=== PATIENT | female | born 1945 | race American Indian/Alaskan Native ===

== ENCOUNTER 2018-01-24 09:17 | Outpatient (CLI) | payer OTHER ==
--- NOTE | 2018-01-24 13:37 | Mammography Report ---
BILATERAL DIGITAL SCREENING MAMMOGRAM with CAD: 01/24/18 09:17:00 CLINICAL: Routine screening. COMPARISON:None available. FINDINGS: There are scattered areas of fibroglandular density. No mass, architectural distortion or suspicious calcifications. IMPRESSION: No mammographic evidence of malignancy. BI-RADS CATEGORY: 2 -- Benign RECOMMENDATION: Routine mammographic screening in one year. COMMENT: Patient follow-up letters are generated by our [employer] application.
== END 2018-01-24 09:18 | disposition home or self-care (01) ==
LOC: MAMMO 09:17
PROVIDERS: ATTEND Family Medicine
DX: Z12.31 Encounter for screening mammogram for malignant neoplasm of breast (principal)
CPT/HCPCS: 77067

== ENCOUNTER 2018-10-16 02:16 | Emergency (ER) | payer OTHER ==
--- NOTE | 2018-10-16 03:06 | Emergency Department Report ---
HPI - General Chief Complaint: Hypoglycemia Time Seen by Provider: 10/16/18 02:53 - HPI HPI: Room 6 The patient is a 73-year-old female presenting with a chief complaint hypoglycemia. The patient states this evening she noticed her blood sugar continued to decrease. She states she'll feel shaky and near syncopal starting at approximately 21:00. The patient states she last took her insulin evening at 19:00. The patient states at 18:00 she had eaten some red beans and rice for her symptoms came on she felt so she had not eaten enough so she ate some more. Patient admits to eating breakfast but is not certain if she's had lunch. The patient's states that the patient does not eat much for the past year and forced herself to eat when she takes her diabetes medication. Patient currently states she feels normal. Location: [See above] Duration: [See above] Quality: [See above] Severity: [See above] Modifying factors: [see above] Context: [see above] Mode of transportation: [not driving] ED Past Medical Hx - Past Medical History Previous Medical History?: Yes Hx Hypertension: Yes Hx Diabetes: Yes - Surgical History Past Surgical History?: Yes Additional Surgical History: ankle - Family History Family history: no significant - Social History Smoking Status: Never Smoker Substance Use Type: Alcohol (occasional) ED Review of Systems ROS: Stated complaint: LOW BLOOD SUGAR Other details as noted in HPI Constitutional: no symptoms reported Eyes: denies: eye pain ENT: denies: throat pain Respiratory: no symptoms reported Cardiovascular: denies: chest pain Endocrine: no symptoms reported Gastrointestinal: denies: abdominal pain Genitourinary: denies: dysuria Musculoskeletal: denies: back pain Neurological: other (near syncopal) Physical Exam - Physical Exam Physical Exam: GENERAL: The patient is well-developed well-nourished female sitting on stretc her not appearing to be in acute distress. [] HEENT: Normocephalic. Atraumatic. Extraocular motions are intact. Patient has moist mucous membranes. NECK: Supple. Trachea midline CHEST/LUNGS: Clear to auscultation. There is no respiratory distress noted. HEART/CARDIOVASCULAR: Regular. There is no tachycardia. There is no gallop rub or murmur. ABDOMEN: Abdomen is soft, nontender. Patient has normal bowel sounds. There is no abdominal distention. SKIN: There is no rash. There is no edema. There is no diaphoresis. NEURO: The patient is awake, alert, and oriented. The patient is cooperative. The patient has no focal neurologic deficits. The patient has normal speech. Cranial nerves II through XII grossly intact, no drift MUSCULOSKELETAL: There is no evidence of acute injury. ED Medical Decision Making - Lab Data Result diagrams: 10/16/18 03:14 10/16/18 03:14 Laboratory Tests 10/16/18 10/16/18 10/16/18 02:28 03:14 03:14 WBC 6.2 RBC 4.78 Hgb 12.1 Hct 37.9 MCV 79 MCH 25 L MCHC 32 RDW 16.2 H Plt Count 255 Lymph % (Auto) 25.3 [place] % (Auto) 7.2 Eos % (Auto) 2.6 Baso % (Auto) 0.8 Lymph # 1.6 [place] # 0.4 Eos # 0.2 Baso # 0.1 Seg Neutrophils % 64.1 Seg Neutrophils # 4.0 Sodium 139 Potassium 3.7 Chloride 100.2 Carbon Dioxide 24 Anion Gap 19 BUN 14 Creatinine 1.0 Estimated GFR > 60 BUN/Creatinine Ratio 14 Glucose 115 H POC Glucose 52 L Calcium 8.7 Total Creatine Kinase 91 CK-MB (CK-2) 1.8 CK-MB (CK-2) Rel Index 1.9 Troponin T < 0.010 10/16/18 10/16/18 10/16/18 03:17 03:57 04:44 WBC RBC Hgb Hct MCV MCH MCHC RDW Plt Count Lymph % (Auto) [place] % (Auto) Eos % (Auto) Baso % (Auto) Lymph # [place] # Eos # Baso # Seg Neutrophils % Seg Neutrophils # Sodium Potassium Chloride Carbon Dioxide Anion Gap BUN Creatinine Estimated GFR BUN/Creatinine Ratio Glucose POC Glucose 113 H 127 H 144 H Calcium Total Creatine Kinase CK-MB (CK-2) CK-MB (CK-2) Rel Index Troponin T - Differential Diagnosis hypoglycemia Critical care attestation.: If time is entered above; I have spent that time in minutes in the direct care of this critically ill patient, excluding procedure time. ED Disposition Clinical Impression: Hypoglycemia Disposition: DC-01 TO HOME OR SELFCARE Is pt being admited?: No Does the pt Need Aspirin: No Condition: Stable Instructions: Diabetic Hypoglycemia (ED) Additional Instructions: Return to the emergency department immediately should you develop worsening symptoms, fever, inability to tolerate food or liquid or any other concerns. Referrals: JESENIA LOPEZ MD [Staff Physician] - 3-5 Days Time of Disposition: 05:01
[2018-10-16 03:22] LABS: Basophils # (Auto) 0.1 K/mm3 (0.0-0.1); Basophils % (Auto) 0.8 % (0.0-1.8); Eosinophils # (Auto) 0.2 K/mm3 (0.0-0.4); Eosinophils % (Auto) 2.6 % (0.0-4.3); Hematocrit 37.9 % (30.3-42.9); Hemoglobin 12.1 gm/dl (10.1-14.3); Lymphocytes # (Auto) 1.6 K/mm3 (1.2-5.4); Lymphocytes % (Auto) 25.3 % (13.4-35.0); Mean Corpuscular HGB Conc 32 % (30-34); Mean Corpuscular Volume 79 fl (79-97); Monocytes # (Auto) 0.4 K/mm3 (0.0-0.8); Monocytes % (Auto) 7.2 % (0.0-7.3); Platelet Count 255 K/mm3 (140-440); Red Blood Count 4.78 M/mm3 (3.65-5.03); Red Cell Distribution Width 16.2 % (13.2-15.2)
[2018-10-16 04:59] LABS: Creatine Kinase MB 1.8 ng/mL (0.0-4.0)
[2018-10-16 05:00] LABS: BUN/Creatinine Ratio 14; Blood Urea Nitrogen 14 mg/dL (7-17); Calcium 8.7 mg/dL (8.4-10.2); Hemolysis Index 39
[2018-10-16 05:08] VITALS: BP 121/60
== END 2018-10-16 05:12 | disposition home or self-care (01) ==
LOC: ED 02:16
DX: E11.649 Type 2 diabetes mellitus with hypoglycemia without coma (principal); I10 Essential (primary) hypertension; Z79.4 Long term (current) use of insulin
CPT/HCPCS: 36415; 80048; 82550; 82553; 82962; 84484; 85025; 99283

== ENCOUNTER 2018-11-20 06:08 | Emergency (ER) | payer BC, OTHER ==
[2018-11-20 06:18] VITALS: BP 116/51
[2018-11-20] MEDS ORDERED: NACL 0.9% 1000 ML 1,000 ML IV ONE (08:11)
--- NOTE | 2018-11-20 08:20 | Emergency Department Report ---
ED General Adult HPI - General Chief complaint: Wound/Laceration Stated complaint: FALL(LACERATION TO FOREHEAD) Time Seen by Provider: 11/20/18 08:04 Source: patient Mode of arrival: Ambulatory Limitations: No Limitations - History of Present Illness Initial comments: Patient is a 73-year-old [place] female who has past history of diabetes and hypertension who is coming in status post near syncopal episode. Patient states 2 days ago she took a laxative tea and is been having large amount of watery stools. Patient states that she started to become dizzy. Patient was rushing to the restroom and she slipped and fell she says she was slightly dizzy at that time although she did not lose consciousness. Patient states she did fall and hit her head on the ground. Patient states she tried to get up and slipped and fell again and struck her head a second time. Patient suffered lacerations to the anterior forehead. Again patient states she isn't enough lose consciousness. She denies any shortness of breath or chest pain. Patient denies any other injury except for some neck stiffness and right shoulder discomfort. - Related Data Allergies Allergy/AdvReac Type Severity Reaction Status Date / Time No Known Allergies Allergy Verified 10/16/18 02:24 ED Review of Systems ROS: Stated complaint: FALL(LACERATION TO FOREHEAD) Other details as noted in HPI Comment: All other systems reviewed and negative ED Past Medical Hx - Past Medical History Previous Medical History?: Yes Hx Hypertension: Yes Hx Diabetes: Yes - Surgical History Past Surgical History?: Yes Additional Surgical History: ankle - Social History Smoking Status: Never Smoker Substance Use Type: None ED Physical Exam - General Limitations: No Limitations General appearance: alert, in no apparent distress - Head Head exam: Present: normocephalic, other (patient with a 2 cm laceration in the vertical orientation on the forehead). Absent: atraumatic - Eye Eye exam: Present: normal appearance, PERRL, EOMI - ENT ENT exam: Present: mucous membranes moist - Neck Neck exam: Present: normal inspection, tenderness (generalized), full ROM - Respiratory Respiratory exam: Present: normal lung sounds bilaterally. Absent: respiratory distress, wheezes, rales, rhonchi - Cardiovascular Cardiovascular Exam: Present: regular rate, normal rhythm. Absent: systolic murmur, diastolic murmur, rubs, gallop - GI/Abdominal GI/Abdominal exam: Present: soft, normal bowel sounds. Absent: distended, tenderness, guarding, rebound - Extremities Exam Extremities exam: Present: normal inspection - Back Exam Back exam: Present: normal inspection - Neurological Exam Neurological exam: Present: alert, oriented X3, CN II-XII intact. Absent: motor sensory deficit - Psychiatric Psychiatric exam: Present: normal affect, normal mood - Skin Skin exam: Present: warm, dry, intact, normal color. Absent: rash ED Course Vital Signs 11/20/18 06:16 Temperature 97.7 F Pulse Rate 57 L Respiratory 18 Rate Blood Pressure 116/51 O2 Sat by Pulse 98 Oximetry - Reevaluation(s) Reevaluation #1: 11/20/18 11:21 Patient was negative for orthostatics. Patient did have IV established by me but she stated it hurt and she wanted to have the IV taken out and she refused any additional IV sticks. Since she is not orthostatic and is tolerating by mouth she'll be allowed to go home and do oral hydration. Patient discharged. - Laceration /Wound Repair Anterior Head Wound Location: head, face Wound Length (cm): 2 Wound's Depth, Shape: irregular Wound Explored: no foreign body removed Irrigated w/ Saline (ccs): 100 Betadine Prep?: Yes Anesthesia: 1% Lidocaine Wound Repaired With: sutures Suture Size/Type: 6:0, nylon Number of Sutures: 6 Sterile Dressing Applied?: Yes ED Medical Decision Making - Lab Data Result diagrams: 11/20/18 08:16 11/20/18 08:16 - Radiology Data [facility] [address] [place] [address] Cat Scan Report Signed Patient: TAMERA HAIR MR#: [id number] : 1945 Acct:[id number] Age/Sex: 73 / F ADM Date: 11/20/18 Loc: ED Attending Dr: Ordering Physician: MITESH FENTON MD Date of Service: 11/20/18 Procedure(s): CT cervical spine wo con Accession Number(s): [id number] cc: MITESH FENTON MD CT CERVICAL SPINE WITHOUT CONTRAST INDICATION: Pain, injury. COMPARISON: None similar. FINDINGS: Noncontrast axial, sagittal and coronal CT reconstructions of the cervical spine demonstrate normal visualized intracranial appearance. Few missing teeth noted. Assessment of the spinal canal from C5 inferiorly also compromised due to artifact from shoulder soft tissues. Clear included sinuses and mastoid air cells. Symmetric occipital condyles. Normal anterior and posterior arches of C1. Intact craniocervical articulation with normal predental space, prevertebral soft tissues, vertebral body stature and posterior elements. Mild multilevel degenerative spurring from C4 through imaged upper thoracic levels, greatest at C5-C6. Straightening noted, possibly positional versus spasm. Few aortic and carotid atherosclerotic calcifications. Patent airway. Clear imaged lung apices. On the obtained axial images: C2-C3, C3-C4 and C4-C5 appear within normal limits. C5-C6 demonstrates mild disc narrowing and slight uncovertebral spurring. C6-C7 is unremarkable. C7-T1 demonstrates mild left facet arthropathy. CONCLUSION: Few cervical spine degenerative changes and other incidental findings, as above. Please correlate. Thank you for the opportunity to participate in this patient's care. Transcribed By: RS Dictated By: KRISTIE CESPEDES MD Electronically Authenticated By: KRISTIE CESPEDES MD Signed Date/Time: 11/20/18 1009 [facility] [address] [place] [id number] Cat Scan Report Signed Patient: TAMERA HAIR MR#: [id number] : 1945 Acct:[id number] Age/Sex: 73 / F ADM Date: 11/20/18 Loc: ED Attending Dr: Ordering Physician: MITESH FENTON MD Date of Service: 11/20/18 Procedure(s): CT head/brain wo con Accession Number(s): [id number] cc: MITESH FENTON MD CT HEAD WITHOUT CONTRAST INDICATION: Pain after fall. COMPARISON: None similar. FINDINGS: Noncontrast head CT demonstrates normal ventricles and sulci. Slight periventricular hypodensities. No acute infarct, hemorrhage, mass effect or midline shift. No abnormal extra axial fluid collections. Minimal, benign bilateral basal ganglia calcifications. Normal posterior fossa with preserved basilar cisterns. Normal imaged eye globes. Approximately 3.4 x 1.2 cm frontal scalp hematoma/swelling noted near midline with suspected laceration and few nonspecific superficial radiodensities/possible foreign bodies measuring up to 0.3 cm as on axial image 45, series 2. Possibly empty sella. Normal calvarium. Clear paranasal sinuses and mastoid air cells. Approximately 3 mm rightward nasal septal spur incidentally noted. Numerous missing teeth. Cervical spondylosis. CONCLUSION: 1. Frontal scalp injury/hematoma with few tiny superficial radiodensities, not entirely excluded for small foreign bodies. 2. No acute intracranial CT abnormality with age-appropriate atrophy and few other incidental findings, as above. Thank you for the opportunity to participate in this patient's care. Transcribed By: RS Dictated By: KRISTIE CESPEDES MD Electronically Authenticated By: KRISTIE CESPEDES MD Signed Date/Time: 11/20/18921 DD/ 6 TD/TT: 11/20/18921 DD/ 100 TD/TT: 11/20/18 1009 Critical care attestation.: If time is entered above; I have spent that time in minutes in the direct care of this critically ill patient, excluding procedure time. ED Disposition Clinical Impression: Dehydration, Near syncope Closed head injury Qualifiers: Encounter type: initial encounter Qualified Code(s): S09.90XA - Unspecified injury of head, initial encounter Facial laceration Qualifiers: Encounter type: initial encounter Qualified Code(s): S01.81XA - Laceration without foreign body of other part of head, initial encounter Disposition: - TO HOME OR SELFCARE Is pt being admited?: No Does the pt Need Aspirin: No Condition: Stable Instructions: Dehydration (ED), Suture Care (ED), Laceration (ED) Additional Instructions: Sutures will need to be removed in one week Time of Disposition: 11:23
[2018-11-20 08:34] LABS: Hematocrit 38.6 % (30.3-42.9); Hemoglobin 12.5 gm/dl (10.1-14.3); Mean Corpuscular HGB Conc 33 % (30-34); Mean Corpuscular Volume 78 fl (79-97); Platelet Count 239 K/mm3 (140-440); Red Blood Count 4.94 M/mm3 (3.65-5.03); Red Cell Distribution Width 16.3 % (13.2-15.2)
[2018-11-20 08:54] LABS: Calcium 9.4 mg/dL (8.4-10.2)
--- NOTE | 2018-11-20 09:23 | Cat Scan Report ---
CT HEAD WITHOUT CONTRAST INDICATION: Pain after fall. COMPARISON: None similar. FINDINGS: Noncontrast head CT demonstrates normal ventricles and sulci. Slight periventricular hypodensities. No acute infarct, hemorrhage, mass effect or midline shift. No abnormal extra axial fluid collections. Minimal, benign bilateral basal ganglia calcifications. Normal posterior fossa with preserved basilar cisterns. Normal imaged eye globes. Approximately 3.4 x 1.2 cm frontal scalp hematoma/swelling noted near midline with suspected laceration and few nonspecific superficial radiodensities/possible foreign bodies measuring up to 0.3 cm as on axial image 45, series 2. Possibly empty sella. Normal calvarium. Clear paranasal sinuses and mastoid air cells. Approximately 3 mm rightward nasal septal spur incidentally noted. Numerous missing teeth. Cervical spondylosis. CONCLUSION: 1. Frontal scalp injury/hematoma with few tiny superficial radiodensities, not entirely excluded for small foreign bodies. 2. No acute intracranial CT abnormality with age-appropriate atrophy and few other incidental findings, as above. Thank you for the opportunity to participate in this patient's care.
--- NOTE | 2018-11-20 10:09 | Cat Scan Report ---
CT CERVICAL SPINE WITHOUT CONTRAST INDICATION: Pain, injury. COMPARISON: None similar. FINDINGS: Noncontrast axial, sagittal and coronal CT reconstructions of the cervical spine demonstrate normal visualized intracranial appearance. Few missing teeth noted. Assessment of the spinal canal from C5 inferiorly also compromised due to artifact from shoulder soft tissues. Clear included sinuses and mastoid air cells. Symmetric occipital condyles. Normal anterior and posterior arches of C1. Intact craniocervical articulation with normal predental space, prevertebral soft tissues, vertebral body stature and posterior elements. Mild multilevel degenerative spurring from C4 through imaged upper thoracic levels, greatest at C5-C6. Straightening noted, possibly positional versus spasm. Few aortic and carotid atherosclerotic calcifications. Patent airway. Clear imaged lung apices. On the obtained axial images: C2-C3, C3-C4 and C4-C5 appear within normal limits. C5-C6 demonstrates mild disc narrowing and slight uncovertebral spurring. C6-C7 is unremarkable. C7-T1 demonstrates mild left facet arthropathy. CONCLUSION: Few cervical spine degenerative changes and other incidental findings, as above. Please correlate. Thank you for the opportunity to participate in this patient's care.
[2018-11-20 14:39] LABS: Basophils % (Manual) 0 % (0.0-1.8); Hypochromasia Few; Platelet Estimate Consistent w Auto; Total Cells Counted 100
== END 2018-11-20 11:35 | disposition home or self-care (01) ==
LOC: ED 06:08
DX: S01.81XA Laceration without foreign body of other part of head, initial encounter (principal); E86.0 Dehydration; I10 Essential (primary) hypertension; E11.9 Type 2 diabetes mellitus without complications; W01.198A Fall on same level from slipping, tripping and stumbling with subsequent striking against other object, initial encounter; Y93.02 Activity, running; Y92.89 Other specified places as the place of occurrence of the external cause; Y99.8 Other external cause status
CPT/HCPCS: 12011; 36415; 70450; 72125; 80048; 85007; 85025; 99284; J7030

== ENCOUNTER 2018-11-26 10:15 | Emergency (ER) | payer OTHER, BC ==
--- NOTE | 2018-11-26 10:36 | Emergency Department Report ---
ED Recheck HPI - General Chief Complaint: Laceration/Recheck/Suture Stated Complaint: REMOVAL OF STITCHS Time Seen by Provider: 11/26/18 10:35 Source: patient Mode of arrival: Ambulatory Limitations: No Limitations - History of Present Illness Initial Comments: She was a 73-year-old female who comes in for suture removal. She had fallen and hit her friend will head. sutures in about 8 days. - Related Data Allergies Allergy/AdvReac Type Severity Reaction Status Date / Time No Known Allergies Allergy Verified 11/26/18 10:18 ED Review of Systems ROS: Stated complaint: REMOVAL OF STITCHS Other details as noted in HPI Comment: All other systems reviewed and negative ED Past Medical Hx - Past Medical History Hx Hypertension: Yes Hx Diabetes: Yes - Surgical History Additional Surgical History: ankle - Social History Smoking Status: Never Smoker Substance Use Type: None ED Physical Exam - General Limitations: No Limitations General appearance: alert - Head Head exam: Present: normocephalic - Eye Eye exam: Present: normal appearance, PERRL - Respiratory Respiratory exam: Present: normal lung sounds bilaterally - GI/Abdominal GI/Abdominal exam: Present: soft - Rectal Rectal exam: Present: deferred - Extremities Exam Extremities exam: Present: normal inspection, full ROM ED Course Vital Signs 11/26/18 10:42 Temperature 98.3 F Pulse Rate 48 L Respiratory 18 Rate Blood Pressure 137/70 [Right] O2 Sat by Pulse 98 Oximetry ED Recheck MDM - Core Measures Measure Exclusions: not indicated - Differential Diagnosis Suture/Staple Removal - Medical Decision Making sutures removed without difficulty Vital Signs (72 hours) 11/26/18 10:42 Temperature 98.3 F Pulse Rate 48 L Respiratory 18 Rate Blood Pressure 137/70 [Right] O2 Sat by Pulse 98 Oximetry dc home with dc plan of care Critical care attestation.: If time is entered above; I have spent that time in minutes in the direct care of this critically ill patient, excluding procedure time. ED Disposition Clinical Impression: Visit for suture removal Disposition: DC-01 TO HOME OR SELFCARE Is pt being admited?: No Does the pt Need Aspirin: No Condition: Stable Time of Disposition: 10:48
[2018-11-26 10:53] VITALS: BP 137/70
== END 2018-11-26 11:00 | disposition home or self-care (01) ==
LOC: ED 10:15
DX: S01.91XD Laceration without foreign body of unspecified part of head, subsequent encounter (principal); I10 Essential (primary) hypertension; E11.9 Type 2 diabetes mellitus without complications; W50.0XXD Accidental hit or strike by another person, subsequent encounter; Y93.89 Activity, other specified; Y92.89 Other specified places as the place of occurrence of the external cause; Y99.8 Other external cause status

== ENCOUNTER 2019-02-06 01:01 | Emergency (ER) | payer OTHER, BC ==
[2019-02-06] MEDS ORDERED: DECADRON IV ONE (01:23)
[2019-02-06] MEDS ORDERED: BENADRYL IV ONE (01:23)
[2019-02-06] MEDS ORDERED: REGLAN IV ONE (01:23)
[2019-02-06] MEDS ORDERED: NACL 0.9% 1000 ML 1,000 ML IV ONE (01:23)
[2019-02-06] MEDS ORDERED: TORADOL IV ONE (01:23)
--- NOTE | 2019-02-06 01:29 | Emergency Department Report ---
ED Headache HPI - General Chief Complaint: Headache Stated Complaint: HEADACHE/LOW SUGAR Time Seen by Provider: 02/06/19 01:22 - History of Present Illness Initial Comments: Patient is a 73-year-old -[place] female with a history of diabetes , managed with metformin and Victoza states bg was 105 tonight at home which set off headache to left temporal , this is usal response to hypoglycemia for this pt , pt denies cp no sob no diaphoresis no n/v no back pain, there has been no cough or fever no dysuria or frequency, Quality: moderate Head Injury Location: temporal Recent Head Trauma: occasional headaches Associated Symptoms: denies: confusion, fever/chills, loss of consciousness, nausea/vomiting, nasal congestion, nasal drainage, numbness in legs/feet, sinus infection, stiff neck, vision changes, weakness Allergies/Adverse Reactions: Allergies No Known Allergies Allergy (Verified 11/26/18 10:18) Home Medications: Ambulatory Orders Nitrofurantoin [place]/M-Cryst [Macrobid CAP] 100 mg PO BID 7 Days #14 capsule 02/06/19 ED Review of Systems ROS: Stated complaint: HEADACHE/LOW SUGAR Other details as noted in HPI Constitutional: denies: chills, fever Eyes: denies: eye pain, eye discharge, vision change ENT: denies: ear pain, throat pain Respiratory: no symptoms reported. denies: cough, shortness of breath, wheezing Cardiovascular: denies: chest pain, palpitations Endocrine: no symptoms reported Gastrointestinal: denies: abdominal pain, nausea, vomiting, diarrhea Genitourinary: denies: urgency, dysuria, discharge Musculoskeletal: denies: back pain, joint swelling, arthralgia Skin: denies: rash, lesions Neurological: headache. denies: weakness, numbness, paresthesias, confusion, abnormal gait, vertigo Psychiatric: denies: anxiety, depression Hematological/Lymphatic: denies: easy bleeding, easy bruising ED Past Medical Hx - Past Medical History Previous Medical History?: Yes Hx Hypertension: Yes Hx Diabetes: Yes - Surgical History Past Surgical History?: Yes Additional Surgical History: ankle - Social History Smoking Status: Never Smoker - Medications Home Medications: Home Medications Medication Instructions Recorded Confirmed Last Taken Type Nitrofurantoin [place]/M-Cryst 100 mg PO BID 7 Days #14 capsule 02/06/19 Unknown Rx [Macrobid CAP] ED Physical Exam - General Limitations: No Limitations General appearance: alert, in no apparent distress - Head Head exam: Present: atraumatic, normocephalic - Eye Eye exam: Present: normal appearance, PERRL, EOMI Pupils: Present: normal accommodation - ENT ENT exam: Present: normal orophraynx, mucous membranes moist, TM's normal bilaterally, normal external ear exam - Neck Neck exam: Present: normal inspection, full ROM. Absent: tenderness, meningismus, lymphadenopathy (I think he), thyromegaly - Respiratory Respiratory exam: Present: normal lung sounds bilaterally. Absent: respiratory distress, wheezes, stridor, chest wall tenderness - Cardiovascular Cardiovascular Exam: Present: regular rate, normal rhythm, normal heart sounds. Absent: systolic murmur, diastolic murmur, rubs, gallop - GI/Abdominal GI/Abdominal exam: Present: soft, normal bowel sounds. Absent: distended, tenderness, bruit, hernia - Rectal Rectal exam: Present: deferred - Extremities Exam Extremities exam: Present: normal inspection, full ROM, normal capillary refill. Absent: tenderness, pedal edema, joint swelling, calf tenderness - Back Exam Back exam: Present: normal inspection, full ROM. Absent: tenderness, CVA tenderness (R), CVA tenderness (L), muscle spasm, paraspinal tenderness, vertebral tenderness, rash noted - Neurological Exam Neurological exam: Present: alert, oriented X3, CN II-XII intact, normal gait, reflexes normal. Absent: motor sensory deficit - Expanded Neurological Exam Expanded Patient oriented to: Present: person, place, time Speech: Present: fluid speech Cranial nerves: EOM's Intact: Normal, Gag Reflex: Normal, Tongue Deviation: Normal, Nystagmus: Normal, Facial Sensation: Normal Cerebellar function: Finger to Nose: Normal, Heel to Brian: Normal, Romberg: Normal Upper motor neuron: Yuri Neglect: Normal, Pronator Drift: Normal, Sensory Extinction: Normal Motor strength exam: RUE: 5, LUE: 5, RLE: 5, LLE: 5 Best Eye Response ([place]): (4) open spontaneously Best Motor Response (Jimena): (6) obeys commands Best Verbal Response ([place]): (5) oriented [place] Total: 15 - Psychiatric Psychiatric exam: Present: normal affect, normal mood - Skin Skin exam: Present: warm, dry, intact, normal color. Absent: rash ED Course Vital Signs 02/06/19 02/06/19 01:03 01:28 Temperature 98 F Pulse Rate 67 Respiratory 18 16 Rate Blood Pressure 133/48 O2 Sat by Pulse 98 Oximetry ED Medical Decision Making - Lab Data Result diagrams: 02/06/19 01:33 02/06/19 01:39 Lab Results 02/06/19 02/06/19 02/06/19 Range/Units 01:14 01:33 01:39 WBC 7.0 (4.5-11.0) K/mm3 RBC 4.67 (3.65-5.03) M/mm3 Hgb 12.2 (10.1-14.3) gm/dl Hct 36.9 (30.3-42.9) % MCV 79 (79-97) fl MCH 26 L (28-32) pg MCHC 33 (30-34) % RDW 16.7 H (13.2-15.2) % Plt Count 217 (140-440) K/mm3 Lymph % (Auto) 22.7 (13.4-35.0) % [place] % (Auto) 7.2 (0.0-7.3) % Eos % (Auto) 2.0 (0.0-4.3) % Baso % (Auto) 0.6 (0.0-1.8) % Lymph # 1.6 (1.2-5.4) K/mm3 [place] # 0.5 (0.0-0.8) K/mm3 Eos # 0.1 (0.0-0.4) K/mm3 Baso # 0.0 (0.0-0.1) K/mm3 Seg Neutrophils % 67.5 (40.0-70.0) % Seg Neutrophils # 4.7 (1.8-7.7) K/mm3 Sodium 136 L (137-145) mmol/L Potassium 3.7 (3.6-5.0) mmol/L Chloride 101.7 (98-107) mmol/L Carbon Dioxide 18 L (22-30) mmol/L Anion Gap 20 mmol/L BUN 18 H (7-17) mg/dL Creatinine 1.1 (0.7-1.2) mg/dL Estimated GFR 59 ml/min BUN/Creatinine Ratio 16 % Glucose 224 H (65-100) mg/dL POC Glucose 186 H (70-105) Calcium 9.0 (8.4-10.2) mg/dL Total Bilirubin 0.40 (0.1-1.2) mg/dL AST 18 (5-40) units/L ALT 11 (7-56) units/L Alkaline Phosphatase 76 (35-129) units/L Total Protein 7.6 (6.3-8.2) g/dL Albumin 3.7 L (3.9-5) g/dL Albumin/Globulin Ratio 0.9 % Urine Color (Yellow) Urine Turbidity (Clear) Urine pH (5.0-7.0) Ur Specific [place] (1.003-1.030) Urine Protein (Negative) mg/dL Urine Glucose (UA) (Negative) mg/dL Urine Ketones (Negative) mg/dL Urine Blood (Negative) Urine Nitrite (Negative) Urine Bilirubin (Negative) Urine Urobilinogen (<2.0) mg/dL Ur Leukocyte Esterase (Negative) Urine WBC (Auto) (0.0-6.0) /HPF Urine RBC (Auto) (0.0-6.0) /HPF U Epithel Cells (Auto) (0-13.0) /HPF Urine Mucus /HPF 07/25/19 Range/Units 03:05 WBC (4.5-11.0) K/mm3 RBC (3.65-5.03) M/mm3 Hgb (10.1-14.3) gm/dl Hct (30.3-42.9) % MCV (79-97) fl MCH (28-32) pg MCHC (30-34) % RDW (13.2-15.2) % Plt Count (140-440) K/mm3 Lymph % (Auto) (13.4-35.0) % [place] % (Auto) (0.0-7.3) % Eos % (Auto) (0.0-4.3) % Baso % (Auto) (0.0-1.8) % Lymph # (1.2-5.4) K/mm3 [place] # (0.0-0.8) K/mm3 Eos # (0.0-0.4) K/mm3 Baso # (0.0-0.1) K/mm3 Seg Neutrophils % (40.0-70.0) % Seg Neutrophils # (1.8-7.7) K/mm3 Sodium (137-145) mmol/L Potassium (3.6-5.0) mmol/L Chloride (98-107) mmol/L Carbon Dioxide (22-30) mmol/L Anion Gap mmol/L BUN (7-17) mg/dL Creatinine (0.7-1.2) mg/dL Estimated GFR ml/min BUN/Creatinine Ratio % Glucose (65-100) mg/dL POC Glucose (70-105) Calcium (8.4-10.2) mg/dL Total Bilirubin (0.1-1.2) mg/dL AST (5-40) units/L ALT (7-56) units/L Alkaline Phosphatase (35-129) units/L Total Protein (6.3-8.2) g/dL Albumin (3.9-5) g/dL Albumin/Globulin Ratio % Urine Color Yellow (Yellow) Urine Turbidity Clear (Clear) Urine pH 6.0 (5.0-7.0) Ur Specific [place] 1.020 (1.003-1.030) Urine Protein <15 mg/dl (Negative) mg/dL Urine Glucose (UA) Neg (Negative) mg/dL Urine Ketones Neg (Negative) mg/dL Urine Blood Neg (Negative) Urine Nitrite Neg (Negative) Urine Bilirubin Neg (Negative) Urine Urobilinogen < 2.0 (<2.0) mg/dL Ur Leukocyte Esterase Mod (Negative) Urine WBC (Auto) 8.0 H (0.0-6.0) /HPF Urine RBC (Auto) 4.0 (0.0-6.0) /HPF U Epithel Cells (Auto) 4.0 (0-13.0) /HPF Urine Mucus Few /HPF - Radiology Data Radiology results: report reviewed, image reviewed - Medical Decision Making labs noted as above , HC mg/dl, ua: mod leuk, wbc, plan tx for UTI, accucheck daily , follow up with pcp in 1-2 days return to emergency if symptoms worsen. Pt verbalized agreement and understanding of discharge plan. Critical care attestation.: If time is entered above; I have spent that time in minutes in the direct care of this critically ill patient, excluding procedure time. ED Disposition Clinical Impression: UTI (urinary tract infection) Qualifiers: Urinary tract infection type: acute cystitis Hematuria presence: without hematuria Qualified Code(s): N30.00 - Acute cystitis without hematuria Disposition: DC-01 TO HOME OR SELFCARE Is pt being admited?: No Does the pt Need Aspirin: No Condition: Stable Instructions: Urinary Tract Infection in Women (ED), Diabetes Mellitus Type 2 in Adults (ED), Meal Planning with Diabetes Exchanges (DC) Prescriptions: Nitrofurantoin [place]/M-Cryst [Macrobid CAP] 100 mg PO BID 7 Days #14 capsule Referrals: PRIMARY CARE, [Primary Care Provider] - 3-5 Days Forms: Work/School Release Form(ED) Time of Disposition: 03:48
[2019-02-06 01:48] LABS: Basophils % (Auto) 0.6 % (0.0-1.8); Eosinophils # (Auto) 0.1 K/mm3 (0.0-0.4); Hematocrit 36.9 % (30.3-42.9); Hemoglobin 12.2 gm/dl (10.1-14.3); Lymphocytes # (Auto) 1.6 K/mm3 (1.2-5.4); Lymphocytes % (Auto) 22.7 % (13.4-35.0); Mean Corpuscular HGB Conc 33 % (30-34); Mean Corpuscular Volume 79 fl (79-97); Monocytes # (Auto) 0.5 K/mm3 (0.0-0.8); Monocytes % (Auto) 7.2 % (0.0-7.3); Platelet Count 217 K/mm3 (140-440); Red Blood Count 4.67 M/mm3 (3.65-5.03); Red Cell Distribution Width 16.7 % (13.2-15.2)
[2019-02-06 02:06] LABS: Albumin 3.7 g/dL (3.9-5)
[2019-02-06 03:30] LABS: Bilirubin,Urine NEG (Negative); Blood,Urine NEG (Negative); Color,Urine Yellow (Yellow); Mucus,Urine FEW /HPF; Protein,Urine <15 mg/dL mg/dL (Negative); Urobilinogen,Urine < 2.0 mg/dL (<2.0)
[2019-02-06 04:18] VITALS: BP 130/70
== END 2019-02-06 04:20 | disposition home or self-care (01) ==
LOC: ED 01:01
DX: N39.0 Urinary tract infection, site not specified (principal); I10 Essential (primary) hypertension; E11.9 Type 2 diabetes mellitus without complications
CPT/HCPCS: 36415; 80053; 81001; 82962; 85025; 96374; 96375; 99283; J1100; J1200; J1885; J2765; J7030

== ENCOUNTER 2019-09-04 10:47 | Outpatient (CLI) | payer OTHER ==
--- NOTE | 2019-09-05 10:31 | Ultrasound Report ---
ULTRASOUND ABDOMEN, COMPLETE INDICATION: ABDOMINAL PAIN. COMPARISON: None available. FINDINGS: Pancreas: Normal. Abdominal Aorta: Normal. IVC: Normal. Liver: 17.3 cm. Increased echogenicity. Gallbladder: Gallstone measuring 1.2 cm. Bile ducts: Normal. Common Bile Duct measures 3 mm. Right Kidney: 3.5 mm nonobstructing stone. Left Kidney: Normal. Spleen: Normal. Free fluid: None. Additional Findings: None. IMPRESSION: 1. Large, fatty liver. 2. Large gallstone. 3. 3.5 mm nonobstructing right renal stone. Signer Name: Coleman Herron MD Signed: 09/05/2019 10:26 AM Workstation Name: [id number]
== END 2019-09-04 10:48 | disposition home or self-care (01) ==
LOC: US 10:47
PROVIDERS: ATTEND Family Medicine
DX: K80.20 Calculus of gallbladder without cholecystitis without obstruction (principal); N20.0 Calculus of kidney; K76.0 Fatty (change of) liver, not elsewhere classified
CPT/HCPCS: 76700

== ENCOUNTER 2020-11-19 13:24 | Outpatient (CLI) | payer OTHER ==
--- NOTE | 2020-11-22 09:23 | Mammography Report ---
DIGITAL SCREENING MAMMOGRAM, 11/19/2020 CLINICAL INFORMATION / INDICATION: Routine screening mammography. TECHNIQUE: Digital bilateral 2D mammography was obtained in the craniocaudal and mediolateral obliqu e projections. COMPARISON: 01/24/2018 FINDINGS: Breast Density: There are scattered areas of fibroglandular density. No dominant mass, suspicious calcifications, or architectural distortion in either breast. IMPRESSION: No mammographic evidence of malignancy. Follow up recommendation: Routine yearly BI-RADS Category 1: Negative. A "normal" or negative report should not discourage follow up or biopsy of a clinically significant f inding. A written summary of these findings will be mailed to the patient. The patient will be entered into a mammography reporting system which will generate a reminder letter for the patient's next appointmen t at the appropriate interval. The [employer] recommends yearly mammograms starting at age 40 and continuing as l leslie as a woman is in good health. Breast MRI is recommended for women with an approximate 20-25% or greater lifetime risk of breast cancer, including women with a strong family history of breast or ova oli cancer or who have been treated for Hodgkin's disease. Signer Name: dEwin Montez MD Signed: 11/22/2020 9:19 AM Workstation Name: [id number]
== END 2020-11-19 13:25 | disposition home or self-care (01) ==
LOC: MAMMO 13:24
PROVIDERS: ATTEND Family Medicine
DX: Z12.31 Encounter for screening mammogram for malignant neoplasm of breast (principal)
CPT/HCPCS: 77067

== ENCOUNTER 2021-01-14 13:58 | Emergency (ER) | payer OTHER ==
[2021-01-14 15:22] LABS: Basophils % (Auto) 0.8 % (0.0-1.8); Eosinophils # (Auto) 0.2 K/mm3 (0.0-0.4); Eosinophils % (Auto) 3.7 % (0.0-4.3); Hematocrit 42.1 % (30.3-42.9); Hemoglobin 13.5 gm/dl (10.1-14.3); Lymphocytes # (Auto) 1.9 K/mm3 (1.2-5.4); Lymphocytes % (Auto) 31.5 % (13.4-35.0); Mean Corpuscular HGB Conc 32 % (30-34); Mean Corpuscular Volume 81 fl (79-97); Monocytes # (Auto) 0.6 K/mm3 (0.0-0.8); Monocytes % (Auto) 9.7 % (0.0-7.3); Platelet Count 260 K/mm3 (140-440); Red Blood Count 5.18 M/mm3 (3.65-5.03); Red Cell Distribution Width 15.2 % (13.2-15.2)
[2021-01-14 15:38] LABS: Alanine Aminotransferase 13 units/L (7-56); Albumin 4.2 g/dL (3.9-5); BUN/Creatinine Ratio 13; Blood Urea Nitrogen 13 mg/dL (7-17); Calcium 9.8 mg/dL (8.4-10.2); Hemolysis Index 19
--- NOTE | 2021-01-14 21:55 | Emergency Department Report ---
ED Palpitations HPI - General Chief Complaint: Chest Pain Stated Complaint: CHEST PAINS Time Seen by Provider: 01/14/21 21:31 Source: patient Mode of arrival: Ambulatory Limitations: No Limitations - History of Present Illness Initial Comments: Chief complaint: "Fluttering in my chest." HPI: This is a 75-year-old female with history of diabetes mellitus, hypertension, palpitations who presents with fluttering in her chest. For several years she has taken metoprolol for palpitations. The palpitations have been more frequent lately. She called the [place] nurse advice line who recommended ED evaluation. She denies chest pain, shortness of breath, back pain, headache. She has not been evaluated by social science research assistant in the past. No history of heart disease with exception of palpitations. She is otherwise been in good health. She is followed by [place] PCP. Complaint: irregular heart beat -: Gradual, week(s), year(s) (Several years more frequent over the last several days) Context: occured during rest Arrythmia History: other (No history of arrhythmia, patient does have history of palpitations) Associated Symptoms: denies other symptoms - Related Data Previous Rx's Medication Instructions Recorded Last Taken Type Acetaminophen [Acetaminophen TAB] 1,000 mg PO Q6HR PRN #30 tablet 02/06/19 Unknown Rx Metoclopramide [Reglan] 10 mg PO Q6H PRN #30 tablet 02/06/19 Unknown Rx Nitrofurantoin [place]/M-Cryst 100 mg PO BID 7 Days #14 capsule 02/06/19 Unknown Rx [Macrobid CAP] diphenhydrAMINE [Benadryl CAP] 25 mg PO Q6HR PRN #30 capsule 02/06/19 Unknown Rx Allergies Allergy/AdvReac Type Severity Reaction Status Date / Time No Known Allergies Allergy Verified 01/14/21 14:01 ED Review of Systems ROS: Stated complaint: CHEST PAINS Other details as noted in HPI Comment: All other systems reviewed and negative Constitutional: denies: fever, malaise Respiratory: denies: cough, shortness of breath Cardiovascular: palpitations. denies: chest pain, dyspnea on exertion, syncope Gastrointestinal: denies: abdominal pain, nausea, vomiting ED Past Medical Hx - Past Medical History Previous Medical History?: Yes Hx Hypertension: Yes Hx Diabetes: Yes - Surgical History Past Surgical History?: Yes Additional Surgical History: ankle - Family History Family history: other (Mother had history of dementia) - Social History Smoking Status: Never Smoker Substance Use Type: None - Medications Home Medications: Home Medications Medication Instructions Recorded Confirmed Last Taken Type Acetaminophen [Acetaminophen TAB] 1,000 mg PO Q6HR PRN #30 tablet 02/06/19 Unknown Rx Metoclopramide [Reglan] 10 mg PO Q6H PRN #30 tablet 02/06/19 Unknown Rx Nitrofurantoin [place]/M-Cryst 100 mg PO BID 7 Days #14 capsule 02/06/19 Unknown Rx [Macrobid CAP] diphenhydrAMINE [Benadryl CAP] 25 mg PO Q6HR PRN #30 capsule 02/06/19 Unknown Rx ED Physical Exam - General Limitations: No Limitations General appearance: alert, in no apparent distress - Head Head exam: Present: atraumatic, normocephalic - Eye Eye exam: Present: normal appearance - ENT ENT exam: Present: mucous membranes moist - Neck Neck exam: Present: normal inspection, full ROM - Respiratory Respiratory exam: Present: normal lung sounds bilaterally. Absent: respiratory distress, wheezes, rales, rhonchi - Cardiovascular Cardiovascular Exam: Present: regular rate, normal rhythm, normal heart sounds. Absent: systolic murmur, diastolic murmur, rubs, gallop - GI/Abdominal GI/Abdominal exam: Present: soft, normal bowel sounds. Absent: distended, tenderness, guarding, rebound - Extremities Exam Extremities exam: Present: normal inspection - Neurological Exam Neurological exam: Present: alert, oriented X3 - Psychiatric Psychiatric exam: Present: normal affect, normal mood - Skin Skin exam: Present: warm, dry, intact, normal color. Absent: rash ED Course Vital Signs 01/14/21 01/14/21 14:07 21:34 Temperature 98.1 F Pulse Rate 64 58 L Respiratory 20 19 Rate Blood Pressure 149/70 O2 Sat by Pulse 98 99 Oximetry ED Medical Decision Making - Lab Data Result diagrams: 01/14/21 14:55 01/14/21 14:55 Laboratory Results - last 24 hr 01/14/21 01/14/21 01/14/21 14:55 14:55 14:55 WBC 6.0 RBC 5.18 H Hgb 13.5 Hct 42.1 MCV 81 MCH 26 L MCHC 32 RDW 15.2 Plt Count 260 Lymph % (Auto) 31.5 [place] % (Auto) 9.7 H Eos % (Auto) 3.7 Baso % (Auto) 0.8 Lymph # (Auto) 1.9 [place] # (Auto) 0.6 Eos # (Auto) 0.2 Baso # (Auto) 0.0 Seg Neutrophils % 54.3 Seg Neutrophils # 3.3 Sodium 140 Potassium 4.2 Chloride 103.4 Carbon Dioxide 24 Anion Gap 17 BUN 13 Creatinine 1.0 Estimated GFR > 60 BUN/Creatinine Ratio 13 Glucose 104 H POC Glucose Calcium 9.8 Total Bilirubin 0.40 AST 22 ALT 13 Alkaline Phosphatase 100 Troponin T < 0.010 Total Protein 7.9 Albumin 4.2 Albumin/Globulin Ratio 1.1 Lipase 46 01/14/21 01/14/21 19:44 20:23 WBC RBC Hgb Hct MCV MCH MCHC RDW Plt Count Lymph % (Auto) [place] % (Auto) Eos % (Auto) Baso % (Auto) Lymph # (Auto) [place] # (Auto) Eos # (Auto) Baso # (Auto) Seg Neutrophils % Seg Neutrophils # Sodium Potassium Chloride Carbon Dioxide Anion Gap BUN Creatinine Estimated GFR BUN/Creatinine Ratio Glucose POC Glucose 127 H Calcium Total Bilirubin AST ALT Alkaline Phosphatase Troponin T < 0.010 Total Protein Albumin Albumin/Globulin Ratio Lipase - EKG Data -: EKG Interpreted by Ok EKG shows normal: sinus rhythm, axis, intervals, QRS complexes, ST-T waves Rate: normal - EKG Data Interpretation: LVH 01/14/21 21:55 EKG obtained 1412 EKG interpreted by tn Rate 60 bpm normal axis normal intervals no ST sign ischemia positive LVH - Radiology Data Radiology results: report reviewed Chest radiograph 2 views: No acute findings according to radiology impression - Medical Decision Making 1. Palpitations: Differential diagnosis includes PVC, mitral valve prolapse, atrial fibrillation. No arrhythmia noted on cardiac monitoring. LA ruled out with serial troponin negative troponin values. Asked CBC chemistry within normal limits. EKG x-ray within normal limits. Patient given referral to social science research assistant. I do not suspect ACS or lethal arrhythmia. 2. Patient has had short time memory loss for the last several years. I recommended that she is evaluated by a [place] neurologist. Critical care attestation.: If time is entered above; I have spent that time in minutes in the direct care of this critically ill patient, excluding procedure time. ED Disposition Clinical Impression: Palpitations Disposition: DC-01 TO HOME OR SELFCARE Is pt being admited?: No Does the pt Need Aspirin: No Condition: Stable Instructions: Palpitations, [id number] Additional Instructions: Please have your [facility] refer you to a neurologist for memory loss. Referrals: MADHURI OLIVA MD [Staff Physician] - 3-5 Days
[2021-01-14 22:30] VITALS: BP 143/52
--- NOTE | 2021-01-20 10:39 | Electrocardiograph Report ---
[facility] Test Date: 2021-01-14 Test Time: 14:12:52 Pat Name: TAMERA HAIR Department: Room: Gender: F Manager Labor Delivery: : 1945 Requested By: LOUIS BEJARANO Order Number: [id number] Reading MD: Norman Lynn Measurements Intervals [place] Rate: 64 P: 50 CO: 168 QRS: 58 QRSD: 92 T: 66 QT: 403 QTc: 416 Interpretive Statements Sinus rhythm Consider left ventricular hypertrophy No previous ECG available for comparison Electronically Signed On 01-20-2021 10:39:28 EDT by Norman Lynn
== END 2021-01-14 22:31 | disposition home or self-care (01) ==
LOC: ED 13:58
DX: R00.2 Palpitations (principal); I10 Essential (primary) hypertension; E11.9 Type 2 diabetes mellitus without complications; Z98.890 Other specified postprocedural states; Z79.899 Other long term (current) drug therapy
CPT/HCPCS: 36415; 71046; 80053; 82962; 83690; 84484; 85025; 93005